=== PATIENT | female | born 1975 | race Native Hawaiian/Other Pacific Islander ===

== ENCOUNTER 2017-09-01 07:45 | Inpatient (IN) | payer MEDICAID ==
[2017-09-01] MEDS ORDERED: cefOXitin IV 2 gm in Dextrose 2 GM/50 ML BAG IVPB ONE (08:28)
[2017-09-01] MEDS ORDERED: Sodium Citrate/Citric Acid 15 ml Sol PO ONE (08:28)
[2017-09-01 08:55] LABS: BASO # 0.1 K/uL (0.0-0.2); BASO % 0.9 % (0.0-2.0); EOS # 0.3 K/uL (0.0-0.7); HEMOGLOBIN 11.5 g/dL (11.0-16.0); LYMPH # 1.6 K/uL (1.0-4.3); LYMPH % 23.5 % (20.0-40.0); MEAN CELL VOLUME 91.7 fL (81.0-99.0); MEAN CORPUSCULAR HEMOGLOBIN 31.6 pg (27.0-31.0); MEAN CORPUSCULAR HGB CONC 34.5 g/dL (33.0-37.0); MEAN PLATELET VOLUME 8.9 fL (7.2-11.7); MONO # 0.6 K/uL (0.0-0.8); MONO % 8.8 % (0.0-10.0); NEUT # 4.3 K/uL (1.8-7.0); NEUT % 62.8 % (50.0-75.0); RBC 3.64 Mil/uL (3.80-5.20); WHITE BLOOD COUNT 6.9 K/uL (4.8-10.8)
[2017-09-01 09:06] LABS: SQUAMOUS EPITHIAL 1 /hpf (0-5); URINE BACTERIA RARE (<OCC); URINE BILIRUBIN NEGATIVE (NEGATIVE); URINE BLOOD NEGATIVE (NEGATIVE); URINE CLARITY Clear (Clear); URINE COLOR Straw (YELLOW); URINE GLUCOSE (UA) NORMAL (Normal); URINE LEUKOCYTE ESTERASE TRACE Leu/uL (Negative); URINE NITRATE NEGATIVE (NEGATIVE); URINE PROTEIN NEGATIVE (NEGATIVE); URINE UROBILINOGEN NORMAL mg/dL (0.2-1.0)
[2017-09-01 09:08] LABS: ALB/GLOB RATIO 1.1 (1.0-2.1); ALBUMIN 3.6 g/dL (3.5-5.0); ALT/SGPT 18 U/L (9-52); AST/SGOT 32 U/L (14-36); BLOOD UREA NITROGEN 9 mg/dL (7-17); GFR AFRICAN-AMERICAN > 60; GFR NON-AFRICAN AMERICAN > 60
[2017-09-01] MEDS ORDERED: Oxytocin 20 units in LR 2,000 ML IV ONE (09:14)
[2017-09-01] MEDS ORDERED: cefOXitin IV 2 gm in Saline 2 GM/50 ML BAG IVPB ONE (09:17)
[2017-09-01] MEDS ORDERED: Morphine 1 mg/ml preservative-free Inj(Duramorph) ONE (09:56)
[2017-09-01] MEDS ORDERED: cefOXitin 2 GM in Sodium Chloride 0.9% 100 ML IV SCH (10:00)
[2017-09-01] MEDS ORDERED: Oxycodone/Acetaminophen 5/325 mg Tab PO PRN (12:01)
[2017-09-01] MEDS ORDERED: Naloxone 0.4 mg/ml Inj (Adult) IVP PRN (12:04)
[2017-09-01] MEDS ORDERED: DiphenhydrAMINE 50 mg/ml Inj IVP PRN (12:04)
--- NOTE | 2017-09-01 13:53 | OP ---
PROCEDURE DATE: 09/01/2017. PREOPERATIVE DIAGNOSES: Intrauterine at 39 weeks, previous section x1, in labor. POSTOPERATIVE DIAGNOSES: Intrauterine at 39 weeks, previous section x1, in labor. PROCEDURE: Lower segment section. FINDINGS: A live male . Apgars 9 at 1 minute and 9 at 5 minutes with normal tubes and ovaries. SURGEON: Paresh Hicks MD. ANESTHESIA: Spinal. EFFICIENCY MINER BLASTING: Dr. Shoaib Perez. COMPLICATIONS: Nil. ESTIMATED BLOOD LOSS: 250 mL. DESCRIPTION OF PROCEDURE: After the risks, benefits, and alternatives of the planned procedures including but not limited to infection, hemorrhage, deep vein thrombosis, atelectasis, pneumonia, pulmonary embolism, damage to the bladder, damage to the ureter, renal insufficiency, renal failure, wound infection, wound dehiscence, incisional hernia, keloid formation, damage to large and small intestines, damage to the inferior vena cava and the aorta requiring extensive repair, anesthesia complications, electrolyte imbalance, possibility of , fluid overload, cerebral edema, air embolism, and other complications that were discussed, but are not listed above, have been explained to the patient and all her questions answered. Informed consent was obtained. The patient was taken to the operating room in a stable condition. Under suitable level of spinal anesthesia, she was prepped and draped in a sterile fashion after having been placed in a supine position. The abdomen was entered through a Pfannenstiel-type incision, carried through the subcutaneous tissues to the fascia. Fascia was opened transversely and dissected off the rectus abdominis musculature. The rectus abdominis musculature was then in the midline to remove the parietal peritoneum, which was entered sharply and incised superiorly and inferiorly. The bladder peritoneum was then incised in a curvilinear fashion and dissected off the lower uterine segment. The lower uterine segment was then entered through a curvilinear incision. Surgeon's fingers were inserted into the lower uterine segment to grasp the infant's head, which was lying in a right occipital anterior position. The head was easily delivered. Nose and mouth were suctioned free of amniotic fluid and the remainder of the was delivered without any difficulty. Cord was doubly clamped and cut and the baby was handed over to the pediatricians who were in attendance. Cord blood was collected with Pitocin running, placenta was manually removed. The endometrium was then cleaned free of remaining membranes and clots. The uterine incision was then closed in layers with the first layer being a running interlocking layer using #1 chromic and the second layer being used to imbricate the first layer. Hemostasis was good. The bladder peritoneum was then reapproximated using running suture of 2-0 chromic. Parietal peritoneum was then irrigated using copious amounts of saline. The saline was evacuated. The abdomen was then closed in layers with 0 chromic to the parietal peritoneum. Recti muscles were reapproximated using interrupted sutures of 0 chromic. Fascia was reapproximated using 2 separate running sutures of 0-Vicryl to meet in the midline. Subcutaneous tissues were reapproximated using interrupted sutures of 0 plain and the initial skin incision was reapproximated using 4-0 Vicryl in a subcuticular fashion. Estimated blood loss for the procedure was 250 mL. Pad, needle, and instrument counts were correct x2. There were no complications. Paresh Hicks MD
[2017-09-01] MEDS: Simethicone 80 mg Chewtab PO SCH ×3 (18:23→23:43)
--- NOTE | 2017-09-01 19:01 | HP ---
DATE: 09/01/2017 HISTORY OF PRESENT ILLNESS: The patient is a 42-year-old female, 2, para 1 with due date of 09/08/2017, at 39 weeks 5 days who presented for section today. The patient has been having contractions since 4 a.m. She denies any leakage of fluids. She denies any vaginal bleeding. The patient's course has been essentially unremarkable. She is of advanced maternal age and declined amniocentesis. Medical history is unremarkable. ALLERGIES: NONE. CURRENT MEDICATIONS: Vitafol Ultra. SOCIAL HISTORY: She does not smoke or drink. PAST SURGICAL HISTORY: Low transverse section x1 for failure to progress. PHYSICAL EXAMINATION: VITAL SIGNS: Her blood pressure was 110/70, pulse was 72, respiratory rate was 20, temperature is 98.8. HEAD, EAR, NOSE, AND THROAT: Within normal. CHEST: Clear. CARDIAC: Reveals normal heart sounds without any murmurs. LUNGS: Clear. EXTREMITIES: Nontender. NEUROLOGIC: She is alert and oriented x3, with normal reflexes. PELVIC: Cervix is 1 to 2 cm, 50% effaced, -2 station. ADMITTING DIAGNOSES: Intrauterine at 39 weeks, previous section x1 in early labor. PLAN: Plan is to perform a lower segment section. Prior to being staged for the surgical procedure, the patient underwent an informed consent, discussion and education session with me in the office lasting approximately an hour, during which time I explained in understandable terms the following, the nature and extent of the disease process and the nature and extent of the contemplated operation. I also explained to her the risks and potential complications of the operative procedures, which include but are not limited to infection, hemorrhage, deep vein thrombosis, atelectasis, pneumonia, pulmonary embolism, damage to the bladder, damage to the ureter, renal insufficiency, renal failure, wound infection, wound dehiscence, incisional hernia, keloid formation, damage to large and small intestines, damage to inferior vena cava and the aorta requiring extensive repair and anesthesia complications, electrolyte imbalance, possibility of , fluid overload, cerebral edema, embolism, and other complications that were discussed, but are not listed above. I also discussed with the patient the anticipated benefits and results of the surgery including a conservative estimate of the successful outcome. I discussed with the patient about the operation that are not accomplished. I informed the patient of the possibility of unanticipated pathology requiring a more extensive procedure. All the questions from the patient were encouraged, welcomed and answered to her satisfaction. The patient was given the opportunity to store her own blood for using in autologous blood transfusion prenatally and she had declined. Paresh Hicks MD
[2017-09-01] MEDS: cefOXitin 2 GM in Sodium Chloride 0.9% 100 ML IV SCH (19:45)
[2017-09-01] MEDS: Lactated Ringer's 1,000 ML IV SCH (23:56)
[2017-09-02] MEDS: cefOXitin 2 GM in Sodium Chloride 0.9% 100 ML IV SCH ×2 (02:22→10:52)
[2017-09-02 08:18] LABS: BASO # 0.1 K/uL (0.0-0.2); BASO % 0.6 % (0.0-2.0); EOS # 0.1 K/uL (0.0-0.7); EOS % 0.5 % (0.0-4.0); HEMOGLOBIN 10.8 g/dL (11.0-16.0); LYMPH # 1.2 K/uL (1.0-4.3); LYMPH % 7.3 % (20.0-40.0); MEAN CELL VOLUME 91.5 fL (81.0-99.0); MEAN CORPUSCULAR HEMOGLOBIN 31.4 pg (27.0-31.0); MEAN CORPUSCULAR HGB CONC 34.4 g/dL (33.0-37.0); MEAN PLATELET VOLUME 8.8 fL (7.2-11.7); MONO # 0.7 K/uL (0.0-0.8); MONO % 4.2 % (0.0-10.0); NEUT # 14.5 K/uL (1.8-7.0); NEUT % 87.4 % (50.0-75.0); PLATELET COUNT 236 K/uL (130-400); RBC 3.43 Mil/uL (3.80-5.20); RED CELL DISTRIBUTION WIDTH 14.3 % (11.5-14.5)
[2017-09-02 08:23] LABS: WHITE BLOOD COUNT 16.7 K/uL (4.8-10.8)
[2017-09-02 10:30] LABS: LYMPHOCYTE 6 % (20-40); MONOCYTE 1 % (0-10); NEUTROPHIL 93 % (50-75); TOTAL CELLS COUNTED 100
[2017-09-02 10:32] LABS: HYPOCHROMIC SLIGHT; PLATELET ESTIMATE NORMAL (NORMAL); POLYCHROMIC SLIGHT
[2017-09-02] MEDS: Simethicone 80 mg Chewtab PO SCH ×4 (10:40→21:50)
[2017-09-02] MEDS: Lactated Ringer's 1,000 ML IV SCH (10:48)
[2017-09-02] MEDS: Enoxaparin 40 mg Syringe SC SCH (11:00)
[2017-09-02] MEDS ORDERED: Bisacodyl 5mg EC Tab PO ONE (12:01)
[2017-09-02] MEDS: Oxycodone/Acetaminophen 5/325 mg Tab PO PRN (19:16)
[2017-09-03] MEDS: Oxycodone/Acetaminophen 5/325 mg Tab PO PRN ×2 (08:23→15:48)
[2017-09-03] MEDS ORDERED: Influenza Vaccine 60 mcg/0.5 mL SYR (4YR UP) IM ONE (08:26)
[2017-09-03] MEDS: Simethicone 80 mg Chewtab PO SCH ×4 (09:16→21:38)
[2017-09-03 09:21] VITALS: RESP 18
[2017-09-03] MEDS: Enoxaparin 40 mg Syringe SC SCH (09:21)
[2017-09-04 08:31] VITALS: PULSE 79; O2SAT 97
[2017-09-04] MEDS: Enoxaparin 40 mg Syringe SC SCH (09:18)
[2017-09-04] MEDS: Simethicone 80 mg Chewtab PO SCH (09:18)
[2017-09-04 15:25] VITALS: BP 95/58; TEMP 98.1
== END 2017-09-04 11:23 | disposition home or self-care (01) | DRG 371 ==
LOC: C.EROB 07:45 → C.4D 08:30 → C.4M 14:30
PROVIDERS: ADMIT Obstetrics & Gynecology Reproductive Endocrinology; ATTEND Obstetrics & Gynecology Reproductive Endocrinology
PROC: 10D00Z1 Extraction of Products of Conception, Low, Open Approach (ICD-10-PCS; principal; 2017-09-01)
DX: O34.211 Maternal care for low transverse scar from previous cesarean delivery (principal); Z37.0 Single live birth; Z3A.39 39 weeks gestation of pregnancy